=== PATIENT | female | born 1970 | race Hispanic/Latino ===

== ENCOUNTER 2019-05-16 08:00 | Outpatient (RCR) | payer OTHER ==
[~2019-05-16 08:00] MED LIST: SODIUM CHLORIDE 0.9% 500ML 500 ML ONE
== END 2019-05-25 ==
LOC: OT 08:00
PROVIDERS: ATTEND Specialist
DX: M75.102 Unspecified rotator cuff tear or rupture of left shoulder, not specified as traumatic (principal); M75.92 Shoulder lesion, unspecified, left shoulder
CPT/HCPCS: 97010 ×3; 97110 ×4; 97165; J7040

== ENCOUNTER 2019-05-27 09:48 | Outpatient (RCR) | payer OTHER | END 2019-06-25 | LOC: OT 09:48 | PROVIDERS: ATTEND Specialist | DX: M75.81 Other shoulder lesions, right shoulder (principal); M25.511 Pain in right shoulder; M25.611 Stiffness of right shoulder, not elsewhere classified; R53.1 Weakness ==